=== PATIENT | female | born 1975 | race Two or more races ===

== ENCOUNTER 2022-10-22 11:15 | Inpatient (IN) | payer OTHER ==
[~2022-10-22] VITALS: Ht 157.5 cm; Wt 86.2 kg
[2022-10-25] MEDS ORDERED: PROBIOTIC250 MG PO (08:32)
[2022-10-25] MEDS ORDERED: PANADOL EXTRA500 MG PO (08:32)
[2022-10-25] MEDS ORDERED: D3 + K2 DOTS 11 EACH PO (08:32)
[2022-10-26] MEDS ORDERED: FLONASE16 GM (14:58)
[2022-10-30] MEDS ORDERED: LEVSIN/SL0.125 MG SL (14:41)
[2022-10-30] MEDS ORDERED: PERCOCET 5-3251 EACH PO (14:41)
[2022-10-30] MEDS ORDERED: INTESTINEX680 M1 PO (14:41)
== END 2022-10-30 17:40 | disposition home or self-care (01) | DRG 331 ==
LOC: O/R 10-26 05:46 → SURH 10-26 05:46 → SURG 10-26 07:00 → SURH 10-26 15:11
PROVIDERS: ADMIT Surgery; ATTEND Surgery
PROC: 0DBP4ZZ Excision of Rectum, Percutaneous Endoscopic Approach (ICD-10-PCS; 2022-10-26)
PROC: 07BC4ZZ Excision of Pelvis Lymphatic, Percutaneous Endoscopic Approach (ICD-10-PCS; 2022-10-26)
PROC: 0TQB4ZZ Repair Bladder, Percutaneous Endoscopic Approach (ICD-10-PCS; 2022-10-26)
PROC: 0DTN4ZZ Resection of Sigmoid Colon, Percutaneous Endoscopic Approach (ICD-10-PCS; principal; 2022-10-26 07:00)
DX: C19 Malignant neoplasm of rectosigmoid junction (principal); D12.7 Benign neoplasm of rectosigmoid junction; K59.09 Other constipation; R59.0 Localized enlarged lymph nodes